=== PATIENT | male | born 1975 | race African-American/Black ===

== ENCOUNTER 2016-10-23 17:54 | Emergency (ER) | payer BC ==
[~2016-10-23] VITALS: Ht 177.8 cm; Wt 127.0 kg
--- NOTE | ~2016-10-23 | EKG ---
PATIENT: RAGINI SLADE UNIT #: [id number] Ventricular Rate: 124 BPM Atrial Rate: 124 BPM P-R Interval: 162 ms QRS Duration: 96 ms Q-T Interval: 310 ms QTC Calculation(Bezet): 445 ms P [place]: 37 degrees Calculated R [place]: 50 degrees Calculated T [place]: 20 degrees Diagnosis Line: Sinus tachycardia Diagnosis Line: Possible Anterior infarct (cited on or before Diagnosis Line: 09-APR-2013) Diagnosis Line: Abnormal ECG Diagnosis Line: When compared with ECG of 09-APR-2013 15:41, Diagnosis Line: No significant change was found Diagnosis Line: Confirmed by ALEXA MATIAS MD ([id number]) on Diagnosis Line: 10/24/2016 8:06:02 AM INTERPRETING MD: POLLY BALDERAS
[~2016-10-23 17:54] MED LIST: ALDACTONE PO; ALLOPURINOL300 MG PO; CLARITIN10 MG PO; FAMVIR500 MG PO; GLYCOPYRROLATE1 MG PO; K-DUR20 ME1 PO; KCL PO; LISINOPRIL20 MG PO; MIRTAZAPINE7.5 MG PO; NEUTRA PHOS K PO; NEXIUM PO; NORVASC10 MG PO; PREDNISONE PO; PRILOSEC PO; REMERON PO; REMERON15 MG PO; ROBINUL1 MG PO; VICODIN 5/1 TAB 5/50 PO; VICOPROFEN 200-1 TAB PO; WALGREENS PHARMACY; ZITHROMAX PO; [UNRECOGNIZED DRUG - REMARK]
[2016-10-23 21:15] LABS: BASOPHIL# 0.1 X10e3 (0-0.3); BASOPHIL% 1.2 % (0-2.5); EOSINOPHIL% 0.4 % (0.0-7.0); HEMATOCRIT 39.7 % (38.0-50.0); HEMOGLOBIN 13.3 gm/dL (13.0-16.0); LYMPHOCYTE# 1.7 X10e3 (1.0-3.5); LYMPHOCYTE% 22.2 % (17.0-45.0); MEAN CELL VOLUME 84.2 FL (83-96); MEAN CORPUSCULAR HEMOGLOBIN 28.3 PG (28-34); MEAN CORPUSCULAR HGB CONC 33.6 g/dL (30-36); MEAN PLATELET VOLUME 8.3 FL (6.5-11.5); MONOCYTE# 0.6 X10e3 (0-1.0); MONOCYTE% 7.4 % (3.0-12.0); NEUTROPHIL# 5.1 X10e3 (1.5-7.1); NEUTROPHIL% 68.8 % (40-75); PLATELET COUNT 306 X10e3 (140-420); RED BLOOD COUNT 4.72 X10e (3.90-5.60); RED CELL DISTRIBUTION WIDTH 17.8 % (11.0-15.5); WHITE BLOOD COUNT 7.4 X10e3 (4.0-10.5)
[2016-10-23 21:17] LABS: DIFF IND NO
[2016-10-23 21:41] LABS: ALBUMIN SERUM 4.7 g/dL (3.5-5.0); BILIRUBIN, DIRECT 0.3 mg/dL (0.0-0.2); BILIRUBIN,INDIRECT 1.7 mg/dL (0.0-0.9); BUN/CREATININE RATIO 8.18; CALCIUM SERUM 9.2 mg/dL (8.4-10.2); CREATININE SERUM 1.1 mg/dL (0.6-1.4); GLOM FILT RATE Estimated 95.5 mL/min (>60); MAGNESIUM 1.6 mg/dL (1.6-3.0); POTASSIUM 3.2 mmol/L (3.5-5.1); PROTEIN TOTAL SERUM 8.1 g/dL (6.0-8.3)
== END 2016-10-23 22:58 | disposition home or self-care (01) ==
LOC: CED 17:54
DX: E87.6 Hypokalemia (principal); K21.9 Gastro-esophageal reflux disease without esophagitis; I10 Essential (primary) hypertension; R56.9 Unspecified convulsions; M10.9 Gout, unspecified; Z88.0 Allergy status to penicillin
CPT/HCPCS: 36415; 80048; 80076; 83690; 83735; 85025; 93005; 96360; 99284